=== PATIENT | female | born 1955 | race Caucasian/White ===

== ENCOUNTER 2017-03-28 08:17 | Day surgery (SDC) | payer OTHER ==
[~2017-03-28] VITALS: Ht 165.1 cm; Wt 84.7 kg
[2017-03-28] VITALS (10 sets, daily range): BP systolic 109–140; BP diastolic 56–69; PULSE 61–72; RESP 14–22; Ht 165.1 cm; Wt 84.7 kg
[~2017-03-28 08:17] MED LIST: ATROPINE 1 MG/10 ML SYRINGE IV PRN; CEFAZOLIN 1 GM/50 ML (PMX) 50 ML IVPB ONE; DIPHENHYDRAMINE 50 MG INJ IV PRN; EPHEDrine SULFATE 50 MG/5 ML SYG IV PRN; FENTAnyl 50 MCG/ML VIAL IV PRN; HYDROmorphONE (0.2 MG/ML) 10ML SYG IV PRN; LABETALOL HCL 20MG INJ IV PRN; LOVA10TA63 PO; MEPERIDINE 25 MG INJ IV PRN; MIDAZOLAM 1 MG/ML 2 ML INJ IV PRN; ONDANSETRON 4 MG INJ IV PRN; OXYCODONE/ACETAMINOPHEN (5/325) TAB PO PRN; SYN1 PO; SYN75 PO; hydrALAzine 20 MG INJ IV PRN; morphine (1 MG/ML) 10ML SYRINGE IV PRN
[2017-03-28] MEDS ORDERED: ASPI-664 PO (08:37)
[2017-03-28] MEDS ORDERED: NEOSTIGMINE 3 MG/3 ML SYRINGE ONE (09:23)
[2017-03-28] MEDS ORDERED: MIDAZOLAM 1 MG/ML 2 ML INJ ONE (09:23)
[2017-03-28] MEDS ORDERED: PROPOFOL 20 ML ONE (09:23)
[2017-03-28] MEDS ORDERED: ROCURONIUM 50 MG INJ ONE (09:23)
[2017-03-28] MEDS ORDERED: FENTAnyl 50 MCG/ML VIAL ONE (09:23)
[2017-03-28] MEDS ORDERED: GLYCOPYRROLATE 0.4 MG INJ ONE (09:23)
[2017-03-28] MEDS ORDERED: LIDOCAINE 2% (SDV) 5 ML INJ ONE (09:23)
[2017-03-28] MEDS ORDERED: ONDANSETRON 4 MG INJ ONE (09:24)
[2017-03-28] MEDS ORDERED: DEXAMETHASONE 4 MG/ML 1 ML INJ ONE (09:24)
--- NOTE | 2017-03-28 09:33 | RADRPT ---
PROCEDURE: XR Chest. CLINICAL INDICATION: Preoperative, right foot bunion TECHNIQUE: Single frontal view of the chest was obtained COMPARISON: None FINDINGS: The heart and mediastinum are within normal limits. The lungs are clear. There is no pleural effusion or pneumothorax. RPTAT: AA IMPRESSION: No acute disease. .Gume Lopez MD, Date Time Electronically viewed and signed by .Gume Lopez MD, on 03/28/2017 09:33 .S/
[2017-03-28] MEDS ORDERED: BUPIVACAINE 0.5% (SDV) 30 ML INJ ONE (10:25)
[2017-03-28] MEDS ORDERED: BUPIVACAINE 0.5%/EPI (SDV) 30 ML INJ ONE (10:25)
[2017-03-28] MEDS ORDERED: POLYMYXIN/BACITRACIN 1L IRRIG ONE (10:26)
[2017-03-28] MEDS ORDERED: ATROPINE 1 MG/10 ML SYRINGE ONE (10:45)
--- NOTE | 2017-03-28 10:50 | HPN ---
Date/Time of Note Date/Time of Note DATE: 03/28/17 TIME: 10:50 Interval H&P Admission Note Pt. seen H&P reviewed: No system changes TIKA PEARCE DPM Mar 28, 2017 10:50
[2017-03-28] MEDS ORDERED: LIDOCAINE 2% (MDV) 20 ML INJ ONE (11:06)
[2017-03-28] MEDS ORDERED: CEFAZOLIN 1 GM INJ ONE (11:23)
--- NOTE | 2017-03-28 12:19 | SIPON ---
Date/Time of Note Date/Time of Note DATE: 03/28/17 TIME: 12:09 Operative Report Preoperative Diagnosis Right first metatarsal phalangeal joint degeneration Hallux rigidus right foot S/P failed bunionectomy Painful hardware right first metatarsal phalangeal joint Postoperative Diagnosis Right first metatarsal phalangeal joint degeneration Hallux rigidus right foot S/P failed bunionectomy Painful hardware right first metatarsal phalangeal joint Operation/Procedure Performed Hardware removal right foot Exostectomy right foot first MPJ First metatarsal phalangeal joint replacement First metatarsal phalangeal joint release Intra-operative use and interpretation of fluoroscopy Surgeon see signature line corporate administrative assistant NONE Anesthesia: MAC Estimated blood loss: minimal Transfusion Required none Specimen Screw x 2; debrided tissue right foot Grafts/Implants none Complications none TIKA PEARCE DPM Mar 28, 2017 12:19
--- NOTE | 2017-03-28 12:20 | OPR ---
Date/Time of Note Date/Time of Note DATE: 03/28/17 TIME: 12:19 Operative Report Procedure Date: Mar 28, 2017 Preoperative Diagnosis Right first metatarsal phalangeal joint degeneration Hallux rigidus right foot S/P failed bunionectomy Painful hardware right first metatarsal phalangeal joint Postoperative Diagnosis Right first metatarsal phalangeal joint degeneration Hallux rigidus right foot S/P failed bunionectomy Painful hardware right first metatarsal phalangeal joint Operation Performed Hardware removal right foot Right first metatarsophalangeal joint release Right first metatarsophalangeal joint replacement Intraoperative use and interpretation of fluoroscopy Application of posterior splint right lower extremity Surgeon see signature line Anesthesia Type: MAC Estimated Blood Loss: minimal Transfusion Required: no Specimens Degenerative bone from the right first metatarsal phalangeal joint Grafts/Implants First metatarsophalangeal joint implant Complications: no Pt Condition Post Procedure: stable Disposition: PACU Indications This is a pleasant 61-year-old female patient who has been suffering with right first metatarsal phalangeal joint pain for several years worsened for the past 9 months. Patient was evaluated and was found to have significant degeneration of the first metatarsophalangeal joint with limited range of motion and tenderness to palpation and range of motion along with crepitus. Patient has failed the following treatments: Shoe gear modification and activity modification along with pain medication and anti-inflammatory medication. Patient seeks surgical management. Recommended procedure: Hardware removal of the right first metatarsal phalangeal joint with joint replacement and joint release. Risks and complications of this type of surgery was discussed with patient in great detail. Risks and complications discussed included, but are not limited to, postoperative infection, postoperative pain, hardware failure, failure of surgery to correct the problem, need for additional surgical procedures, deep venous thrombosis, limb loss and loss of life. Patient understands the discussion and agrees to the procedure. An informed consent was signed, obtained and placed in the chart. No guarantees or warrantees was given or implied as to the outcome of the procedure either in verbal or written form. Operative\Procedure Findings Severe first metatarsal phalangeal joint degeneration with hardware in the head of the first metatarsal right foot. Procedure Description Procedure in detail: The patient was seen in the preoperative area. Proposed surgery was discussed with patient in great detail. Risks and complications were discussed. Opportunity was given to patient to ask questions and all questions were answered. No guarantee or warranty was given or implied as to the outcome of the procedure, either in verbal or written form. Patient acknowledges understanding of the discussion and agrees to the procedure. An informed consent was obtained, signed and placed in the chart. The patient was brought into the operating room and was placed on the operating table in the supine position. IV sedation was administered by the anesthesiologist and I injected the right ankle with 20 cc of a one-to-one mixture of 2% lidocaine plain and 0.5% Marcaine plain as a total ankle block. A pneumatic ankle tourniquet was applied to the right ankle. The right foot was scrubbed, prepped and draped in the usual aseptic manner. An Esmarch bandage was utilized to exsanguinate the right foot and the pneumatic ankle tourniquet was inflated to 250 mmHg pressure. Attention was directed to the right foot: Attention was directed to the right first metatarsophalangeal joint. A 6 cm linear incision was made on the dorsal medial aspect of the joints medial to the extensor hallucis longus tendon. This was done using a #15 blade. Bleeders were cauterized as necessary. Dissection was deepened using sharp and blunt dissection. Vital neurovascular structures were identified and preserved. The extensor hallucis longus tendon was retracted laterally exposing the dorsal aspect of the joint capsule. A linear capsulotomy was performed using a #15 blade and dissected off of the head of the first metatarsal base of the proximal phalanx exposing the first metatarsophalangeal joint. Intraoperative fluoroscopy was used to locate the head of the screw and was easily found. The screw was easily removed. Next, first metatarsophalangeal joint release was done. Next, the head of the first metatarsal was prepped for implant insertion. The guide for the implant was inserted and the head was cut using a power saw. All rough edges and stefanie- joint osteophytes were removed. Next, a medium size implant was selected. A K wire was inserted into the first metatarsal and first metatarsal was prepped for insertion of the implant. Implant was inserted and malleted into place. Intraoperative fluoroscopy was used for guidance. The range of motion was checked was 30 of dorsiflexion and 50 of plantarflexion after insertion of the implant. The wound was then flushed with copious loss of sterile normal saline. The joint capsule was reapproximated using 3-0 Vicryl, the subcutaneous layer was closed using 4-0 Vicryl and the skin was closed using 5- 0 Monocryl in subcuticular stitch pattern. Steri-Strips were applied. Postop injection of 0.5% Marcaine plain was given. Sterile dressing was applied. The pneumatic ankle tourniquet was deflated at this time and prompt hyperemic response was noted to digits of the right foot. The patient tolerated the procedure and anesthesia well. She was transferred to the recovery room with vital signs stable and vascular status intact to the right foot. Patient will be discharged home after postoperative monitoring. Postoperative orders have been written. Patient will be followed up in 1 week. Patient is to weight-bear on the right foot using postop shoe and crutches. TIKA PEARCE DPM Mar 28, 2017 12:20 TIAK PEARCE DPM Mar 28, 2017 12:20
--- NOTE | 2017-03-28 12:57 | RADRPT ---
PROCEDURE: Intraoperative imaging of the right foot with fluoroscopy. CLINICAL INDICATION: Right foot pain. Intraoperative. TECHNIQUE: Four images of the right foot were obtained in the operating room with an image intensi fier. No radiologist was in attendance. Fluoroscopy time is 7.9 seconds. COMPARISON: No prior study is available for comparison. FINDINGS: Images demonstrate arthroplasty of the right first metatarsal phalangeal joint. IMPRESSION: 1. Intraoperative imaging of the right foot. RPTAT: QQ .Abelino Ramos MD, Date Time Electronically viewed and signed by .Abelino Ramos MD, on 03/28/2017 12:57 .R/
--- NOTE | 2017-03-28 13:31 | RADRPT ---
PROCEDURE: XR Right Foot. CLINICAL INDICATION: Right foot pain. Postop. TECHNIQUE: 3 views. Frontal, lateral, and oblique. COMPARISON: Intraoperative imaging done earlier the same day. FINDINGS: There is a prosthesis replacing the first metatarsal head. This appears satisfactory. There is no fracture or dislocation. The articular surfaces are otherwise intact. There is no lytic or blastic lesion. There is no other radiopaque foreign body. IMPRESSION: 1. Satisfactory postoperative appearance of the right foot. RPTAT: QQ .Abelino Ramos MD, MD Date Time Electronically viewed and signed by .Abelino Ramos MD, MD on 03/28/2017 13:31 .R/
== END 2017-03-28 14:05 | disposition home or self-care (01) ==
LOC: SDS 08:17
PROVIDERS: ATTEND Podiatrist Foot & Ankle Surgery
DX: M19.071 Primary osteoarthritis, right ankle and foot (principal); M20.21 Hallux rigidus, right foot; T84.84XA Pain due to internal orthopedic prosthetic devices, implants and grafts, initial encounter; E78.5 Hyperlipidemia, unspecified; I10 Essential (primary) hypertension; E03.9 Hypothyroidism, unspecified; Z86.73 Personal history of transient ischemic attack (TIA), and cerebral infarction without residual deficits; Y83.8 Other surgical procedures as the cause of abnormal reaction of the patient, or of later complication, without mention of misadventure at the time of the procedure
CPT/HCPCS: 20680; 28270; 28899; 71010; 73630; 88300; 88304; 88311; C1776; J0461; J0690; J1100; J2175; J2250; J2405; J3010; Z7512; Z7610; J2710

== ENCOUNTER 2018-09-16 06:51 | Observation (INO) | payer OTHER ==
[2018-09-16] VITALS (24 sets, daily range): BP systolic 119–151; BP diastolic 59–82; PULSE 52–100; RESP 16–28; Ht 162.6 cm; Wt 83.6 kg
[~2018-09-16] VITALS: Ht 162.6 cm; Wt 83.6 kg
[~2018-09-16 06:51] MED LIST changes: +ASPI81TA52 PO; -ATROPINE 1 MG/10 ML SYRINGE IV PRN; -CEFAZOLIN 1 GM/50 ML (PMX) 50 ML IVPB ONE; +CEFAZOLIN 2 GM/50 ML (PMX) 50 ML IVPB SCH; -DIPHENHYDRAMINE 50 MG INJ IV PRN; -EPHEDrine SULFATE 50 MG/5 ML SYG IV PRN; -FENTAnyl 50 MCG/ML VIAL IV PRN; -HYDROmorphONE (0.2 MG/ML) 10ML SYG IV PRN; -LABETALOL HCL 20MG INJ IV PRN; +LEVO-86 PO; -MEPERIDINE 25 MG INJ IV PRN; -MIDAZOLAM 1 MG/ML 2 ML INJ IV PRN; -ONDANSETRON 4 MG INJ IV PRN; -OXYCODONE/ACETAMINOPHEN (5/325) TAB PO PRN; +SOD CHLORIDE 0.9% 1,000 ML IV ONE; -SYN1 PO; -SYN75 PO; -hydrALAzine 20 MG INJ IV PRN; -morphine (1 MG/ML) 10ML SYRINGE IV PRN
[2018-09-16] MEDS ORDERED: ISOSULFAN BLUE 1% 5 ML INJ SC ONE (11:42)
--- NOTE | 2018-09-16 11:53 | PREAC ---
Date/Time of Note Date/Time of Note DATE: 09/16/18 TIME: 11:51 Anesthesia Eval and Record Evaluation Time Pre-Procedure Interview DATE: 09/16/18 TIME: 11:51 Age 62 Sex female NPO: 8 hrs Preoperative diagnosis Lt breast CA Planned procedure Lt breast partial mastectomy Past Medical History Past Medical History: Includes Cardio: Dyslipidemia Endo: Hypothyroid GI: Obesity Surgery & Anesthesia Issues No known issue Meds Anticoagulation: Yes Beta Ochoa within 24 hr: No Reason Beta Ochoa not given: Pt. not on B-Ochoa Reported Medications Aspirin (Low Dose Aspirin) 81 Mg Tablet.dr, 81 MG PO DAILY, #30 TAB 03/28/17 Levothyroxine Sodium* (Synthroid*) 100 Mcg Tablet, 100 MCG PO BEFORE BREAKFAST, #30 TAB 09/03/15 Lovastatin* (Lovastatin*) 10 Mg Tablet, 10 MG PO HS, TAB 09/03/15 Current Medications Cefazolin Sodium/ Dextrose 50 ml @ 100 mls/hr PRE-OP IVPB ; Start 09/16/18 at 06:00; Stop 09/16/18 at 18:00 Sodium Chloride 1,000 ml @ 75 mls/hr [id number] ONCE IV ; Start 09/16/18 at 06:00; Stop 09/16/18 at 19:19 Meds reviewed: Yes Allergies Coded Allergies: No Known Drug Allergies (Unverified Allergy, Unknown, 03/28/17) Allergies Reviewed: Yes Labs/Studies Labs Reviewed: Reviewed by anesthesiologist Result Diagram: 09/16/18 0734 09/16/18 0734 Laboratory Tests 09/16/18 07:34 test: N/A Studies: ECG Pre-procedure Exam Last vitals Vital Signs Date Temp Pulse Resp B/P (MAP) Pulse Ox O2 O2 Flow FiO2 Time Delivery Rate 09/16/18 96.3 52 16 151/70 99 Room Air 10:30 (97) Airway: Adequate mouth opening, Adequate thyromental dist Mallampati: Mallampati II Teeth: Normal Lung: Normal Heart: Normal ASA Physical Status ASA physical status: 3 Emergency: None Planned Anesthetic General/MAC: LMA Planned Pain Management Parenteral pain med Pre-operative Attestations Prior to commencing anesthesia and surgery, the patient was re-evaluated, there was verification of: *The patient's identity *The results of appropriate recent lab work and preoperative vital signs *The above evaluation not changing prior to induction *Anesthetic plan, risk benefits, alternative and complications discussed with patient/family; questions answered; patient/family understands, accepts and wishes to proceed. FLYNN SERRANO MD Sep 16, 2018 11:53
[2018-09-16] MEDS ORDERED: SEVOFLURANE 15 MIN ONE (12:00)
[2018-09-16] MEDS ORDERED: ONDANSETRON 4 MG INJ ONE (12:00)
[2018-09-16] MEDS ORDERED: CEFAZOLIN 1 GM INJ ONE (12:00)
[2018-09-16] MEDS ORDERED: FENTAnyl 50 MCG/ML VIAL ONE (12:02)
[2018-09-16] MEDS ORDERED: MIDAZOLAM 1 MG/ML 2 ML INJ ONE (12:02)
--- NOTE | 2018-09-16 13:44 | SIPON ---
Date/Time of Note Date/Time of Note DATE: 09/16/18 TIME: 13:43 Operative Report Preoperative Diagnosis Invasive cancer left breast Postoperative Diagnosis Same Operation/Procedure Performed Left needle directed partial mastectomy and axillary dissection utilizing sentinel lymph node technique Surgeon see signature line assistant county engineer Dr Lee Anesthesia: general Estimated blood loss: 10 - 50 ml's Transfusion Required none Specimen Left partial mastectomy specimen and sentinel lymph node with additional axillary nodes Grafts/Implants none Complications none GALA LUCIANO MD Sep 16, 2018 13:44
[2018-09-16] MEDS ORDERED: PROPOFOL 20 ML ONE (13:52)
[2018-09-16] MEDS ORDERED: LIDOCAINE 2% (SDV) 5 ML INJ ONE (13:52)
[2018-09-16] MEDS ORDERED: ACETAMINOPHEN 1000MG/100ML IV 100 ML IVPB PRN (14:00)
[2018-09-16] MEDS ORDERED: morphine 2 MG INJ IV PRN (14:00)
[2018-09-16] MEDS ORDERED: ONDANSETRON 4 MG INJ IV PRN ×2 (14:00→14:30)
--- NOTE | 2018-09-16 14:11 | PAC ---
Date/Time of Note Date/Time of Note DATE: 09/16/18 TIME: 14:11 Post-Anesthesia Notes Post-Anesthesia Note Last documented vital signs Vital Signs Date Temp Pulse Resp B/P (MAP) Pulse Ox O2 O2 Flow FiO2 Time Delivery Rate 09/16/18 96.3 52 16 151/70 99 Room Air 10:30 (97) Activity: WNL Respiratory function: WNL Cardiovascular function: WNL Mental status: Baseline Pain reasonably controlled: Yes Hydration appropriate: Yes Nausea/Vomiting absent: Yes Comments BP:112/67, P:78, Spo2:100%, T:98,8 FLYNN SERRANO MD Sep 16, 2018 14:11
[2018-09-16] MEDS: HYDROmorphONE 1 MG/5 ML IV SYRINGE IV PRN ×2 (14:22→14:31)
[2018-09-16] MEDS ORDERED: DIPHENHYDRAMINE 50 MG INJ IV PRN (14:30)
[2018-09-16] MEDS ORDERED: MEPERIDINE 25 MG INJ IV PRN (14:30)
[2018-09-16] MEDS ORDERED: HYDROmorphONE 1 MG/5 ML IV SYRINGE IV PRN (14:30)
[2018-09-16] MEDS ORDERED: METOCLOPRAMIDE 10 MG INJ IV PRN (14:30)
[2018-09-16] MEDS ORDERED: KETOROLAC 30 MG INJ IV PRN (14:30)
[2018-09-16] MEDS ORDERED: FENTAnyl 50 MCG/ML VIAL IV PRN (14:30)
--- NOTE | 2018-09-16 14:31 | RADRPT ---
Vent Rate: 51 bpm RR Interval: 0 msec ND Interval: 170 msec QRS Duration: 82 msec QT Interval: 430 msec QTC Interval: 396 msec P-R-T [place]: 50 - 50 - 35 degrees Sinus bradycardia Otherwise normal ECG Electronically Signed By: Robert Sheppard
--- NOTE | 2018-09-16 15:08 | OPR ---
DATE OF OPERATION: 09/16/2018 PREOPERATIVE DIAGNOSIS: Invasive cancer, left breast. POSTOPERATIVE DIAGNOSIS: Invasive cancer, left breast. PROCEDURE: Left needle-directed partial mastectomy and axillary dissection utilizing sentinel lymph node technique. ANESTHESIA: General. ANESTHESIOLOGIST: Marc Etienne MD SURGEON: Miguel A Rand MD GERIATRIC ASSISTANT: Jorgito Luciano MD INDICATIONS FOR PROCEDURE: The patient is a 62-year-old female who underwent screening mammography, who was found to have a suspicious lesion in her left breast. Core biopsy confirmed cancer. She was counseled as to the risks versus benefits of surgery. She consented and was scheduled for surgery. DESCRIPTION OF PROCEDURE: On the morning of surgery, the patient presented to [facility] where she underwent localization of the lesion performed by attending radiolog ist, Dr. Gunjan Tomas. Subsequently, she was brought to the operating theater and placed under general anesthesia. The left breast and axillary region was prepped and draped in the usual sterile fashion . Approximately 3 to 4 mL of 1% Lymphazurin blue dye was then injected peritumorally, and the breast was gently massaged for approximately 12 minutes. At this point, a 3 to 4 cm incision was made in t he left axillary hairline. Subcutaneous tissue was dissected with cautery down through the clavipect oral fascia. The fascia was incised. It was difficult to locate the dye-stained lymphatic and event ually one was located. It was traced to distally. However, a definite blue node was not identified. Therefore, the decision was made to perform a level I dissection. This was accomplished by removin g all level I jasmin tissue utilizing the LigaSure device. Specimen was removed and sent for [facility] t pathologic analysis. The wound was irrigated. Minimal bleeding was controlled with cautery. A #1 0-Spanish Zack-Tanner drain was then brought through the left mid axillary line. It was cut to size , laid within the axilla and secured in place with a 2-0 nylon suture in the standard fashion. The s kin was then reapproximated with a 4-0 Vicryl suture in subcuticular fashion. Attention was then directed to performing the partial mastectomy. A curvilinear incision was made in the upper outer quadrant of the breast where the localization wire was located. Subcutaneous tissue was dissected with cautery. Wide circumferential dissection of the tissue associated with the wire then took place, and the specimen was elevated, transected, oriented and sent for radiographic confir mation of capture. Capture was confirmed. Specimen was then sent for permanent pathologic analysis. The wound was irrigated. Minimal bleeding was controlled with cautery. The skin was reapproximate d with a deep dermal layer of 4-0 Vicryl sutures in interrupted fashion, followed by final skin appro ximation with 5-0 PDS sutures in subcuticular fashion. Dermabond was then applied to both incisions. The patient tolerated the procedure well. The estimated blood loss was 20 mL. There were no compl ications and the patient was transported in stable condition to the recovery room. Dictated By: MIGUEL A RAND MD TL/NTS Conf#: [id number] DID#: [id number] CC: JORGITO LUCIANO MD;*EndCC*
[2018-09-16] MEDS: D5W-0.45 NACL + KCL 20 MEQ 1,000 ML IV SCH (15:52)
[2018-09-17] VITALS: BP 108/52; PULSE 70; RESP 18
[2018-09-17] MEDS: D5W-0.45 NACL + KCL 20 MEQ 1,000 ML IV SCH ×3 (00:34→09:14)
[2018-09-17 04:00] VITALS: BP 122/59; PULSE 61; RESP 17
[2018-09-17 07:53] VITALS: BP 127/60; PULSE 58; RESP 17
--- NOTE | 2018-09-17 12:37 | QN ---
Documentation Comment seen and examined RUBIA CHERRY MD Sep 17, 2018 12:37
--- NOTE | 2018-09-17 12:41 | PN ---
Date/Time of Note Date/Time of Note DATE: 09/17/18 TIME: 12:38 Assessment/Plan VTE Prophylaxis Risk score (from Nsg)>0 risk: 5 SCD applied (from Nsg): Yes Pharmacological prophylaxis: NA/contraindicated Pharm contraindication: low risk/ambulating Lines/Catheters IV Catheter Type (from Nrsg): Peripheral IV Assessment/Plan Assessment/Plan 62 y/o with # POD #1 s/p partial left mastectomy for in for invasive breast cancer with natremia # hypothyroidism # Hypercholestermia plan - Pain control - montior janusz drain dc if ok with surgery Result Diagram: 09/16/18 0734 09/16/18 0734 Results 24hrs Laboratory Tests Test 09/17/18 08:12 Lab Scanned Report REFERENCE LAB Subjective 24 Hr Interval Summary Free Text/Dictation .feels better Post mastectomy Exam/Review of Systems Exam Vitals Vital Signs Date Temp Pulse Resp B/P (MAP) Pulse Ox O2 O2 Flow FiO2 Time Delivery Rate 09/17/18 98.2 58 17 127/60 97 Room Air 07:53 (82) 09/16/18 2.0 20:00 Intake and Output 09/16/18 09/16/18 09/17/18 1515:00 23:00 07:00 IntakeIntake Total 1050 ml 415 ml 1588 ml OutputOutput Total 25 ml BalanceBalance 1025 ml 415 ml 1588 ml Exam s/p left partial mastectomy with JANUSZ drain Results Results 24hrs Laboratory Tests Test 09/17/18 08:12 Lab Scanned Report REFERENCE LAB Medications Medication Current Medications Ondansetron HCl (Zofran Inj) 4 mg Q6H PRN IV NAUSEA AND/OR VOMITING; Start 09/16/18 at 14:00 Morphine Sulfate (morphine) 2 mg Q1H PRN IV PAIN; Start 09/16/18 at 14:00 Acetaminophen 100 ml @ 400 mls/hr Q6H PRN IVPB PAIN Last administered on 08/30 03/20at 03:35; Admin Dose 400 MLS/HR; Start 09/16/18 at 14:00; Stop 09/17/18 at 13:59 RUBIA CHERRY MD Sep 17, 2018 12:41
--- NOTE | 2018-09-17 12:42 | PDOCDIS ---
Discharge Instructions DIAGNOSIS Discharge Diagnosis left Partial mastectomy CONDITION [id number] Patient Condition: [id number] Fair HOME CARE INSTRUCTIONS: [id number] Diet Instructions: [id number] Modified Fat ACTIVITY: [id number] Activity Restrictions: [id number] Slowly Increase Activity Rest between Activity Avoid heavy lifting FOLLOW UP/APPOINTMENTS Follow-up Plan fu With Dr. Rand in about 1 week keep Surgical site clean return to ER if she has discharge pain fevers and chills RUBIA CHERRY MD Sep 17, 2018 12:42
[2018-09-17] MEDS ORDERED: IBUP100T3 PO (12:45)
--- NOTE | 2018-09-17 14:00 | CONS ---
DATE OF ADMISSION: 09/17/2018 DATE OF CONSULTATION: TYPE OF CONSULTATION: Medical. REASON FOR CONSULTATION: Postop consult. HISTORY OF PRESENTING ILLNESS: This is a 62-year-old female with a past medical history of 1.2 cm in vasive cancer 2 o'clock left breast, well-differentiated, was admitted electively by for le ft needle partial mastectomy with axillary dissection using sentinel lymph node technique. Currently , the patient is status post left partial mastectomy and sentinel lymph node dissection. The patient has some 25 mL of drainage through the JAVI drain. Pain is minimal. The patient also has history of hypothyroidism and hypercholesterolemia. Vital signs currently blood pressure 127/60, heart rate 61, afebrile, saturating 97%. PAST MEDICAL HISTORY: 1. Hypothyroidism. 2. Hypercholesterolemia. ALLERGIES: NONE. PAST SURGICAL HISTORY: None. MEDICATIONS TAKING AT HOME: 1. Lovastatin 10 mg p.o. at bedtime. 2. Aspirin 81 mg. 3. Levothyroxine 100 mcg before breakfast. SOCIAL HISTORY: No history of smoking, alcohol or any drug use. Lives in [place]. FAMILY HISTORY: No history of breast cancer. REVIEW OF SYSTEMS: The patient has some mild pain status post left breast surgery. Denies any abdom inal pain, nausea, vomiting, diarrhea. Denies any chest pain, any shortness of breath. Denies any f ocal neurological deficits. PHYSICAL EXAMINATION: VITAL SIGNS: Blood pressure 122/59, afebrile, heart rate 61, respirations 17, saturating 97%. GENERAL: The patient is awake, alert, oriented, does not appear to be in acute distress. HEENT: Pupils are equal, round, reactive to light. NECK: Supple. No JVD. HEART: Regular rate and rhythm. BREASTS: The patient is status post left breast partial mastectomy. JAVI drain in place which is drai karly blackish discharge. EXTREMITIES: No clubbing, cyanosis or edema. NEUROLOGIC: Nonfocal. LABORATORY DATA: Sodium 145. BMP within normal limit. White count of 6.4, hemoglobin 14.1, platele t count 240. ASSESSMENT AND PLAN: 1. This is a 62-year-old status post left needle partial mastectomy and sentinel lymph node biopsy w ith additional axillary lymph node. 2. Invasive breast cancer. 3. Hypothyroidism. 4. Hypercholesterolemia. PLAN: At this period of time, the patient is admitted to med/surg. The patient is on pain control, being followed by the surgery. The patient will be continued on home medications. Rest of the treat ment will depend of the patient's hospitalization course. Dictated By: RUBIA HORNE/LEÓN Conf#: [id number] DID#: [id number] CC: VANCE ARMAS MD; GALA LUCIANO MD;*End*
--- NOTE | 2018-09-17 15:12 | PN ---
DATE: 09/17/2018 Postop day #1 status post left breast partial mastectomy with axillary resection. SUBJECTIVE: The patient does not have any specific complaint. Has been out of bed and walk around. Has tolerated diet. OBJECTIVE: GENERAL: Awake, alert. VITAL SIGNS: Temperature maximum today 98.7, heart rate 70, respirations 18, blood pressure 108/52, saturation 96% on room air. HEART: Regular. LUNGS: Clear. Dressings are intact. The dressing around the chest is slightly tight but the patient likes it and is not compromising her breathing and respiration. Zack-Tanner drained serosanguineous fluid. Slightly greenish color due to the dye that had been injected at time of the operation. The patient can be discharged home to b e followed by Dr. Luciano. Patient to call the office to make appointment for followup. Dictated By: JAYCE LUCIANO MD PS/NTS Conf#: [id number] DID#: [id number] CC: GALA LUCIANO MD;*EndCC*
[2018-09-18] MEDS ORDERED: LEVOTHYROXINE 100 MCG TAB PO SCH (07:00)
== END 2018-09-17 14:20 | disposition home or self-care (01) ==
LOC: SDS 06:51 → REC 13:46 → UNDOADMIN 13:46 → SDS 13:46 → MS1 14:38 → REC 15:27 → MS1 15:27 → REC 09-17 07:56 → SDS 09-17 07:56 → MS1 09-17 07:57
PROVIDERS: ADMIT Surgery Surgical Oncology; ATTEND Surgery Surgical Oncology
DX: C50.412 Malignant neoplasm of upper-outer quadrant of left female breast (principal); Z17.0 Estrogen receptor positive status [ER+]; E03.9 Hypothyroidism, unspecified; E78.00 Pure hypercholesterolemia, unspecified
CPT/HCPCS: 19301; 38525; 38900; 71045; 80053; 85025; 85610; 85730; 88307; 93005; J0131; J0690; J1170; J2250; J2405; J3010; J3480; Z7500; Z7512; Z7610; G0378; Q9968